=== PATIENT | male | born 1975 | race African-American/Black ===

== ENCOUNTER 2024-08-04 09:32 | Emergency (ER) | payer BC, SELFPAY ==
--- NOTE | ~2024-08-04 | XR_ITS ---
XR knee LT min 4V Ordering provider: Joseph Posada MD History: . injury . Comparison: None. FINDINGS: BONES: Fracture of the inferior aspect of the patella. JOINT SPACES: Normal. SOFT TISSUES: Ossification of the insertion of the quadriceps and patellar tendons. Soft tissue swell ing over the inferior patella. IMPRESSION: Bony fragment seen in the inferior aspect of the patella suggestive of a fracture. Reviewed, dictated and finalized at location A. IMPRESSION: Bony fragment seen in the inferior aspect of the patella suggestive of a fractu re.
[2024-08-04 09:40] VITALS: BP 187/101; PULSE 102; RESP 18; TEMP 36.9; O2SAT 100
[2024-08-04 10:09] VITALS: PULSE 54; RESP 16; O2SAT 97
--- NOTE | 2024-08-04 10:10 | PC.NURSE ---
Pt politely declines elevation, ice at this time.
[2024-08-04 10:53] VITALS: BP 174/109; PULSE 89; RESP 18; O2SAT 100
--- NOTE | 2024-08-04 10:54 | ED_ITS ---
HPI - Extremity Injury (Lower) General Chief Complaint: Extremity Injury, Lower Stated Complaint: left knee pain Time Seen by Provider: 08/04/24 10:04 Source: patient Mode of arrival: ambulatory Limitations: no limitations History of Present Illness HPI Narrative: 48-year-old otherwise healthy here with the complaints of left knee pain patient states that he popped his knee 2 days ago, was having significant pain yesterday however today he is able to ambulate complains of mild swelling. He denies any fall. Patient states that he works for [employer] does heavy lifting all the time. He also stated that he is under quite a bit of family stress with his mom recently diagnosed with cancer and has poor health and he has been working a lot. He has not seen a primary doctor for a while. He presently denies having any headache or chest pain or shortness of breath. MD complaint: knee injury (left) Onset (ago): day(s) (2) Type of Injury: unknown Place: home Severity: moderate Relieving factors: nothing Exacerbating factors: movement Associated symptoms: swelling Other symptoms: none Related Data Allergies Allergy/AdvReac Type Severity Reaction Status Date / Time No Known Allergies Allergy Verified 08/04/24 10:54 Review of Systems Review of Systems: All systems reviewed & are unremarkable except as noted in HPI and below Constitutional: Constitutional: Reports no additional constitutional complaints Eyes: Eyes: Reports no additional eye complaints ENT: Reports system reviewed and no additional complaints, except as documented Cardiovascular: Cardiovascular: Reports no additional cardiovascular complaints Respiratory: Respiratory: Reports no additional respiratory complaints Gastrointestinal: Gastrointestinal: Reports no additional gastrointestinal complaints Musculoskeletal: Musculoskeletal: Reports as per HPI Exam Narrative: GENERAL: Well-appearing, well-nourished, and in no acute distress. HEAD: Normocephalic, atraumatic. EYES: PERRLA and EOMI. ENT: Nares clear, Mucous membranes moist. NECK: Supple. CHEST: Clear to auscultation. No respiratory distress. HEART: Regular rate and rhythm. No murmur heard. Normal peripheral pulses. ABDOMEN: Soft, nontender, nondistended, normal active bowel sounds. EXTREMITIES: Normal range of motion. No edema. Examination of the left knee shows mild soft tissue swelling. No deformity otherwise stated SKIN: Warm, dry, no rash. NEURO: No focal deficits. Alert and oriented x3. PSYCH: Normal mood and affect. Course Course Emergency Course: Notified patient about his x-ray findings. The I did inform him about his high blood pressure. Patient presently declined any medication for his blood pressure he wants to get it checked out in a week's time and then consider. He states that most likely from anxiety what he is going through at this point. However I recommended him to follow with her orthopedic doctor regarding his knee Vital Signs Vital signs: Vital Signs Temperature 36.9 C 08/04/24 09:40 Pulse Rate 102 H 08/04/24 09:40 Respiratory Rate 18 08/04/24 09:40 Blood Pressure 187/101 H 08/04/24 09:40 Pulse Oximetry 100 08/04/24 09:40 Oxygen Delivery Room Air 08/04/24 09:40 Temperature 36.9 C 08/04/24 09:40 Pulse Rate 89 08/04/24 10:53 Respiratory Rate 18 08/04/24 10:53 Blood Pressure 174/109 H 08/04/24 10:53 Pulse Oximetry 100 08/04/24 10:53 Oxygen Delivery Room Air 08/04/24 09:40 MDM - Extremity Injury (Lower) Differential Diagnosis Differential diagnosis: Likely acute internal derangement of knee Medical Records Attestation: I reviewed the patient's medical records. Imaging Data Radiologist's impression: ITS Impressions Knee X-Ray 08/04/24 10:33 IMPRESSION: Bony fragment seen in the inferior aspect of the patella suggestive of a fracture. Discharge Plan Discharge Clinical Impression: Patellar fracture Qualifiers: Encounter type: initial encounter Fracture type: closed Fracture morphology: unspecified fracture morphology Fracture alignment: nondisplaced Laterality: left Qualified Code(s): S82.002A - Unspecified fracture of left patella, initial encounter for closed fracture Patient Disposition: Home, Self-Care Condition: Stable Instructions: Patellar Fracture (ED), Hypertension (ED) Additional Instructions: Please check your blood pressure in the next few day , takemeds as prescribed for pain Patient Language: Romansh Prescriptions: New naproxen sodium [Anaprox DS] 550 mg tablet 550 mg PO Q12H PRN (Reason: pain) Qty: 14 0RF Follow-up/Referrals: Fady Muñoz MD [Physician] - PHYSICIAN,MIXING AND MOLDING MACHINE OPERATOR [Primary Care Provider] - Humphrey Gill MD [Physician] - Time of Disposition: 11:09
== END 2024-08-04 11:14 | disposition home or self-care (01) ==
PROVIDERS: Emergency Provider Family Medicine
DX: S82.002A Unspecified fracture of left patella, initial encounter for closed fracture (principal); R03.0 Elevated blood-pressure reading, without diagnosis of hypertension; X50.9XXA Other and unspecified overexertion or strenuous movements or postures, initial encounter
CPT/HCPCS: 73564; 99283